=== PATIENT | male | born 1970 | race Caucasian/White ===

== ENCOUNTER 2017-01-28 17:08 | Emergency (ER) | payer BC ==
--- NOTE | ~2017-01-28 | EKG ---
PATIENT: STEFFI DOTSON UNIT #: [id number] Ventricular Rate: 67 BPM Atrial Rate: 67 BPM P-R Interval: 150 ms QRS Duration: 92 ms Q-T Interval: 392 ms QTC Calculation(Bezet): 414 ms P [place]: 40 degrees Calculated R [place]: 61 degrees Calculated T [place]: 90 degrees Diagnosis Line: Normal sinus rhythm Diagnosis Line: Normal ECG Diagnosis Line: When compared with ECG of 08-JUN-2016 16:05, Diagnosis Line: Sinus rhythm has replaced Atrial fibrillation Diagnosis Line: Vent. rate has decreased BY 92 BPM Diagnosis Line: Non-specific change in ST segment in Inferior Diagnosis Line: leads Diagnosis Line: ST no longer depressed in Anterior leads Diagnosis Line: Nonspecific T wave abnormality no longer evident Diagnosis Line: in Inferior leads Diagnosis Line: Confirmed by MAXIMILIANO MONSON MD ([id number]) on 01/29/2017 Diagnosis Line: 4:37:04 PM INTERPRETING MD: ERMIAS MORIN
--- NOTE | ~2017-01-28 | CR72 ---
[facility] A Service of [facility] & [facility] RADIOLOGY TEXT RESULTS PATIENT: STEFFI DOTSON LOCATION: [facility] : 70 UNIT #: [id number] AGE: [address]: Joaquín Castaneda MD SEX: M ORDER DR: [id number] [facility] [address] [place], [place] [address] [id number] MR#: [id number] Acc #: [id number] NAME: STEFFI DOTSON : 1970 SEX: M STUDY DATE/TIME: 01/28/2017 17:00 UNIT: [facility] ROOM: STUDY DESCRIPTION: CR Chest Single View Portable Attending Physician: Joaquín Castaneda M.D. Ordering Physician: Joaquín Castaneda M.D. Primary Care Physician: Sharonda Ferrell M.D. MEDICAL IMAGING REPORT This report is preliminary unless electronic signature is present EXAM Portable chest, 2 views. DATE OF EXAM 01/28/2017 HISTORY Dyspnea, shortness breath, cough and chest pain beginning 1 day ago. Benign essential hypertension. FINDINGS The heart is minimally enlarged, status post median sternotomy. There is poor inspiratory result with bibasilar discoid atelectasis. The lungs are otherwise clear. There are no pleural effusions. IMPRESSION Mild cardiac enlargement, status post median sternotomy. No active pulmonary disease. Dictated by... Onur Isaac M.D. THIS IS AN ELECTRONICALLY VERIFIED REPORT Onur Isaac M.D. at 01/29/2017 1:13 PM Baljinder TD: 01/28/2017 20:51 JOB #: [id number] MEDICAL IMAGING REPORT Page 1 of 1 COPY
[~2017-01-28 17:08] MED LIST: AMOXICILLIN PO; ANTIVERT PO; ATENOLOL PO; BLOOD PRESSURE PO; CARDIZEM CD300 MG PO; CARDIZEM PO; CARDIZEM SR PO; CORTANE-B OTIC10 ML OP; COUMADIN5 MG PO; DICLOFENAC PO; DIGOX0.25 MG PO; FLEXERIL PO; FLEXERIL10 MG PO; HYDROCODONE-APA1 T41 PO; IBUPROFEN PO; KETOPROFEN PO; LASIX20 MG PO; LIPITOR PO; LISINOPRIL PO; LOPRESSOR PO; LOTREL 10/20 MG1 CAP PO; LOTREL PO; NO MEDICATIONS; ORUDIS75 M1 PO; ROBAXIN 750750 M1 PO; SKELAXIN PO; TOPROL XL PO; TYLENOL #3 PO; VICODIN PO; VOLTAREN50 MG PO; VOLTAREN75 MG PO
[2017-01-28 18:16] LABS: POC - CKMB 1.6 ng/mL (0.0-7.9); POC - TROPONIN <0.05 ng/mL (<=0.05)
[2017-01-28 18:18] LABS: BASOPHIL% 0.3 % (0-2.5); EOSINOPHIL# 0.1 X10e3 (0-0.7); EOSINOPHIL% 1.2 % (0.0-7.0); HEMATOCRIT 42.3 % (38.0-50.0); HEMOGLOBIN 14.3 gm/dL (13.0-16.0); LYMPHOCYTE# 0.7 X10e3 (1.0-3.5); LYMPHOCYTE% 8.6 % (17.0-45.0); MEAN CELL VOLUME 91.1 FL (83-96); MEAN CORPUSCULAR HEMOGLOBIN 30.8 PG (28-34); MEAN CORPUSCULAR HGB CONC 33.8 g/dL (30-36); MEAN PLATELET VOLUME 8.9 FL (6.5-11.5); MONOCYTE% 12.7 % (3.0-12.0); NEUTROPHIL# 6.1 X10e3 (1.5-7.1); NEUTROPHIL% 77.2 % (40-75); PLATELET COUNT 300 X10e3 (140-420); RED BLOOD COUNT 4.64 X10e (3.90-5.60); RED CELL DISTRIBUTION WIDTH 13.6 % (11.0-15.5); WHITE BLOOD COUNT 7.8 X10e3 (4.0-10.5)
[2017-01-28 18:21] LABS: DIFF IND NO
[2017-01-28 18:39] LABS: PARTIAL THROMBOPLASTIN TIME 26.1 SECONDS (23.5-31.3); PROTHROMBIN TIME (PATIENT) 10.9 SECONDS (9.6-11.5)
[2017-01-28 18:44] LABS: ALBUMIN SERUM 3.9 g/dL (3.5-5.0); ALKALINE PHOSPHATASE 90 U/L (32-92); ALT (SGPT) 21 U/L (10-40); AST (SGOT) 21 U/L (10-42); BILIRUBIN,TOTAL 0.8 mg/dL (0.2-2.0); BLOOD UREA NITROGEN 16 mg/dL (9-23); BUN/CREATININE RATIO 9.41; CALCIUM SERUM 8.9 mg/dL (8.4-10.2); CARBON DIOXIDE 27 mmol/L (22-31); CHLORIDE 98 mmol/L (100-111); CREATININE SERUM 1.7 mg/dL (0.6-1.4); GLOM FILT RATE Estimated 47.3 mL/min (>60); GLUCOSE FASTING 118 mg/dL (70-110); POTASSIUM 4.6 mmol/L (3.5-5.1); PROTEIN TOTAL SERUM 7.7 g/dL (6.0-8.3); SODIUM 134 mmol/L (135-145)
[2017-01-28 18:49] LABS: BILIRUBIN, DIRECT <0.1 mg/dL (0.0-0.2); BILIRUBIN,INDIRECT 0.7 mg/dL (0.0-0.9)
[2017-01-28 20:06] LABS: POC - CKMB <1.0 ng/mL (0.0-7.9); POC - TROPONIN <0.05 ng/mL (<=0.05)
== END 2017-01-28 20:23 | disposition home or self-care (01) ==
LOC: CED 17:08
PROVIDERS: Emergency Medicine
DX: J40 Bronchitis, not specified as acute or chronic (principal); N28.9 Disorder of kidney and ureter, unspecified; I10 Essential (primary) hypertension
CPT/HCPCS: 36415; 71010; 80048; 80076; 82553; 83880; 84484; 85025; 85610; 85730; 93005; 94640; 99284